=== PATIENT | female | born 1960 | race American Indian/Alaskan Native ===

== ENCOUNTER 2016-10-05 20:34 | Emergency (ER) | payer MEDICARE ==
[2016-10-05 21:00] VITALS: BP 154/100
--- NOTE | 2016-10-05 22:53 | Emergency Department Report ---
HPI - General Chief Complaint: Skin/Abscess/Foreign Body Time Seen by Provider: 10/05/16 22:37 - HPI HPI: 56-year-old female presents today with a boil of her left arm since last night. Positive for history of similar symptoms. Patient states that she has been applying warm compresses and has gotten it to drain. Describes the drainage as bloody with yellow pus. Denies pain at this time. Denies fever, chills, nausea , vomiting, chest pain, shortness of breath, abdominal pain. Denies trying any medication for symptomatic relief. ED Past Medical Hx - Past Medical History Previous Medical History?: No - Surgical History Past Surgical History?: No - Social History Smoking Status: Current Every Day Smoker Substance Use Type: None - Medications Home Medications: Home Medications Medication Instructions Recorded Confirmed Last Taken Type Cephalexin [Keflex] 500 mg PO Q6HR #20 capsule 10/05/16 Unknown Rx Sulfamethoxazole/Trimethoprim 1 each PO BID #10 tablet 10/05/16 Unknown Rx [Bactrim DS TAB] ED Review of Systems ROS: Stated complaint: BOIL UNDER LT ARM Other details as noted in HPI Constitutional: denies: chills, fever, malaise Eyes: denies: eye pain ENT: denies: ear pain, throat pain, congestion Respiratory: denies: cough, shortness of breath, wheezing Cardiovascular: denies: chest pain, palpitations Endocrine: no symptoms reported Gastrointestinal: denies: abdominal pain, nausea, vomiting Neurological: denies: headache, weakness, numbness, paresthesias Physical Exam - Physical Exam Vital Signs: Vital Signs 10/05/16 20:56 Temperature 98.2 F Pulse Rate 82 Respiratory 18 Rate Blood Pressure 154/100 O2 Sat by Pulse 100 Oximetry Physical Exam: GENERAL: The patient is well-developed and well-nourished. Patient is in NAD. SKIN: 1.5 cm in diameter boil noted over the left axillary region, minimal drainage noted. Minimally tender to palpation. HEAD: Normocephalic. Atraumatic. CHEST/LUNGS: Clear to auscultation throughout. HEART/CARDIOVASCULAR: Regular rate and rhythm. No murmurs, rubs or gallops. ABDOMEN: Abdomen is soft, nontender. Bowel sounds normoactive. No guarding or rebound tenderness. EXTREMITIES: Peripheral pulses intact. Capillary refill less than 2 seconds. NEURO: Alert and oriented x 3. Normal gait. ED Course Vital Signs 10/05/16 20:56 Temperature 98.2 F Pulse Rate 82 Respiratory 18 Rate Blood Pressure 154/100 O2 Sat by Pulse 100 Oximetry ED Medical Decision Making - Lab Data Vital Signs 10/05/16 20:56 Temperature 98.2 F Pulse Rate 82 Respiratory 18 Rate Blood Pressure 154/100 O2 Sat by Pulse 100 Oximetry - Medical Decision Making 56-year-old female presents today with an abscess of her left axillary region that is draining. Patient is in no acute distress at this time. She will be discharged home and is encouraged to follow up with a primary care provider. She will be sent home on Keflex and Bactrim and is encouraged to return to the emergency room for any worsening symptoms. Critical care attestation.: If time is entered above; I have spent that time in minutes in the direct care of this critically ill patient, excluding procedure time. ED Disposition Clinical Impression: Abscess Disposition: DISCHARGED TO HOME OR SELFCARE Is pt being admited?: No Does the pt Need Aspirin: No Condition: Stable Instructions: Abscess (ED) Additional Instructions: Follow-up with primary care provider. Return to the emergency department if symptoms worsen. Prescriptions: Cephalexin [Keflex] 500 mg PO Q6HR #20 capsule Sulfamethoxazole/Trimethoprim [Bactrim DS TAB] 1 each PO BID #10 tablet Referrals: PRIMARY CARE [Primary Care Provider] - 3-5 Days [facility] [Outside] - 3-5 Days Forms: Work/School Release Form(ED) Time of Disposition: 22:52
== END 2016-10-05 22:55 | disposition home or self-care (01) ==
LOC: ED 20:34
DX: L02.412 Cutaneous abscess of left axilla (principal); F17.200 Nicotine dependence, unspecified, uncomplicated
CPT/HCPCS: 99282